=== PATIENT | male | born 1955 | race Caucasian/White ===

== ENCOUNTER 2021-01-13 08:40 | Outpatient (CLI) | payer BC ==
[2021-01-13 09:50] LABS: Hemoglobin 15.5 g/dL (13.5-17.5); Mean Corpuscular Hemoglobin 31.6 pg (27.0-33.0); Mean Corpuscular Volume 93.1 fl (81.2-95.1); Mean Platelet Volume 10.2 fl (7.4-10.4); Platelet Count 224 10x3/uL (150-450); White Blood Cell (WBC) Count 4.8 10x3/uL (3.5-10.5)
[2021-01-13 09:52] LABS: INR-International Normal Ratio 0.9; Prothrombin Time 10.3 sec (9.5-12.1)
[2021-01-13 10:01] LABS: ALT (SGPT) 33 U/L (8-55); AST (SGOT) 23 U/L (5-34); Albumin 4.3 g/dL (3.4-4.8); Alkaline Phosphatase 67 U/L (40-110); Anion Gap 15 mmol/L (10-20); BUN (Urea Nitrogen) 13 mg/dL (8.4-25.7); Bilirubin, Total 0.5 mg/dL (0.2-1.2); Calc. Creatinine Clearance 0 mL/min (70-130); Calcium 9.8 mg/dL (7.8-10.44); Carbon Dioxide 24 mmol/L (23-31); Chloride 104 mmol/L (98-107); Globulin 2.5 g/dL (2.4-3.5); Glucose 102 mg/dL (80-115); Magnesium 2.2 mg/dL (1.6-2.6); Potassium 5.2 mmol/L (3.5-5.1); Protein, Total 6.8 g/dL (5.8-8.1); Sodium 138 mmol/L (136-145)
[2021-01-13 10:24] LABS: Free T4 (Free Thyroxine) 0.97 ng/dL (0.70-1.48); Thyroid Stimulating Hormone 1.5953 uIU/mL (0.35-4.94)
== END 2021-01-13 08:41 | disposition home or self-care (01) ==
LOC: LABBT 08:40
PROVIDERS: ATTEND Internal Medicine Cardiovascular Disease
DX: Z01.812 Encounter for preprocedural laboratory examination (principal); I47.1 Supraventricular tachycardia
CPT/HCPCS: 80053; 83735; 84439; 84443; 85027; 85610

== ENCOUNTER 2021-01-16 06:33 | Day surgery (SDC) | payer BC ==
[2021-01-15 10:24] VITALS: BMI 25.8
[2021-01-16] MEDS ORDERED: Midazolam HCl 2 mg/2 ml Vial ONE (09:41)
[2021-01-16] MEDS ORDERED: Lidocaine 1% (PF) 30 ML VIAL ONE (10:28)
[2021-01-16] MEDS ORDERED: Heparin 10,000 UNITS/ 10 ML VIAL ONE (10:28)
[2021-01-16] MEDS ORDERED: Fentanyl 100 MCG/2 ML VIAL ONE ×2 (11:07→14:19)
[2021-01-16] MEDS ORDERED: Ondansetron PF 4 MG/2 ML Vial ONE (11:19)
[2021-01-16] MEDS ORDERED: Lidocaine 1% PF 5 ML VIAL ONE (11:19)
[2021-01-16] MEDS ORDERED: Ketorolac Tromethamine 30 MG/ML VIAL ONE (11:19)
[2021-01-16] MEDS ORDERED: diphenhydrAMINE 50 MG/ML VIAL ONE (11:19)
[2021-01-16] MEDS ORDERED: Propofol 500 MG/50 ML VIAL ONE (11:39)
[2021-01-16] MEDS ORDERED: Amiodarone 150 MG/3 ML VIAL ONE (13:01)
[2021-01-16] MEDS ORDERED: Acetaminophen 500 MG TAB ONE (14:47)
== END 2021-01-16 18:19 | disposition home or self-care (01) ==
LOC: CCL 06:33
PROVIDERS: ATTEND Internal Medicine Cardiovascular Disease
PROC: 02K83ZZ Map Conduction Mechanism, Percutaneous Approach (ICD-10-PCS; principal; 2021-01-16)
PROC: 02583ZZ Destruction of Conduction Mechanism, Percutaneous Approach (ICD-10-PCS; principal; 2021-01-16)
DX: I47.1 Supraventricular tachycardia (principal); I48.3 Typical atrial flutter; I48.0 Paroxysmal atrial fibrillation; J45.909 Unspecified asthma, uncomplicated; E78.5 Hyperlipidemia, unspecified; I10 Essential (primary) hypertension; Z79.01 Long term (current) use of anticoagulants; Z79.899 Other long term (current) drug therapy; Z88.5 Allergy status to narcotic agent
CPT/HCPCS: 76942; 92960; 93005; 93010; 93613; 93623; 93653; C1730; C1731; C1894; C2630; J0282; J1200; J1644; J1885; J2001; J2250; J2405; J2704; J3010